=== PATIENT | male | born 1980 | race African-American/Black ===

== ENCOUNTER 2017-11-28 09:42 | Emergency (ER) | payer MEDICAID ==
[~2017-11-28] VITALS: Ht 185.4 cm; Wt 132.4 kg
[~2017-11-28 09:42] MED LIST: CALC500C3; IBU600T
[2017-11-28 09:48] VITALS: BP 150/102
[2017-11-28] MEDS ORDERED: KETOROLAC TROMETH 60MG/2ML VIAL IM ONE (10:45)
== END 2017-11-28 11:24 | disposition home or self-care (01) ==
LOC: ER 09:42
DX: M25.572 Pain in left ankle and joints of left foot (principal); F17.210 Nicotine dependence, cigarettes, uncomplicated; F12.10 Cannabis abuse, uncomplicated; Z79.1 Long term (current) use of non-steroidal anti-inflammatories (NSAID); Z79.899 Other long term (current) drug therapy
CPT/HCPCS: 73630; 96372; 99284; J1885

== ENCOUNTER 2018-10-10 09:12 | Emergency (ER) | payer MEDICAID ==
[~2018-10-10] VITALS: Ht 188 cm; Wt 127.0 kg
[2018-10-10 09:23] VITALS: BP 141/92
[2018-10-10] MEDS ORDERED: KETOROLAC TROMETH 60MG/2ML VIAL IM ONE (10:00)
== END 2018-10-10 10:14 | disposition home or self-care (01) ==
LOC: ER 09:14
DX: S83.92XA Sprain of unspecified site of left knee, initial encounter (principal); F17.210 Nicotine dependence, cigarettes, uncomplicated; F12.90 Cannabis use, unspecified, uncomplicated; Z79.899 Other long term (current) drug therapy; X50.0XXA Overexertion from strenuous movement or load, initial encounter; Y93.89 Activity, other specified; Y99.0 Civilian activity done for income or pay; Y92.89 Other specified places as the place of occurrence of the external cause
CPT/HCPCS: 73562; 96372; 99283; J1885

== ENCOUNTER 2025-04-08 14:38 | Emergency (ER) | payer MEDICAID ==
[~2025-04-08] VITALS: Ht 182.9 cm; Wt 130.0 kg
[~2025-04-08 14:38] MED LIST changes: +COLC1CAP PO; +INDO50CA82 PO
--- NOTE | 2025-04-08 15:50 | DVH ---
CLINICAL INDICATION: elbow pain TECHNIQUE: 3 radiographic views of the right elbow were obtained. Comparison: None FINDINGS/IMPRESSION: There is no evidence of acute fracture or dislocation. Small enthesophyte off the proximal ulna. The visualized joint space is well maintained. No joint effusion The alignment is anatomical. There is no radiopaque foreign body.
[2025-04-08] MEDS ORDERED: METH4PAK PO (17:39)
[2025-04-08] MEDS ORDERED: NAPR-746 PO (17:39)
--- NOTE | 2025-04-08 17:39 | ED.PDOC ---
Musculoskeletal HPI Comments 44-year-old male presents with a chief complaint of elbow pain to lateral epicondyle. 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 Patient mentions that this occurred 1 day ago. Patient mentions that the pain is made worse with flexion. Rates his pain moderate Has not tried anything over the counter for pain. No associated symptoms. Denies any numbness or tingling to his hand. Chief Complaint: Upper Extremity Time Seen by MD: 15:13 Primary Care Provider: TATI Ramirez Notes: Nurses Notes, Medications, Allergies Allergies: Coded Allergies: NO KNOWN ALLERGIES (Unverified , 11/16/12) Home Meds Active Scripts Methylprednisolone (Medrol Dosepak) 4 Mg Amos, 4 MG PO UD for 7 Days, #21 TAB 0 Refills UAD Prov:SANTI TALBOT MATH TEACHER 04/08/25 Naproxen (Naproxen) 500 Mg Tab, 500 MG PO BIDPC for 10 Days, #20 TAB 0 Refills Prov:SANTI TALBOT MATH TEACHER 04/08/25 Colchicine (Colchicine) 0.6 Mg Cap, 0.6 MG PO BID, #30 CAP Prov:MARTY SUTTON 09/24/22 Indomethacin (Indomethacin) 50 Mg Cap, 1 CAP PO TID, #30 CAP Prov:MARTY SUTTON 09/24/22 Reported Medications Calcium Carbonate (Tums) 500 Mg Chw 11/16/12 *Ibuprofen Micronized (*Motrin) 600 Mg Tb 11/16/12 Information Source: Patient Mode of Arrival: Ambulatory Location: Right Extremity Location: Elbow Timing: Days Prehospital treatment: None Severity: Moderate Able to Move Extremity: Yes Bear Weight: Limited Pain: Moderate Hand Dominance: Right Mechanism: No Trauma Circumstances: Work Related Onset of Symptoms: After Exercise Symptoms: Pain DVT Risk Factors: NONE Last Tetanus: UTD Associated signs and symptoms: Elbow pain Past Medical History PAST MEDICAL HISTORY: Gout Surgical History: Denies all surgeries Family History Family History: Reviewed,noncontributory to illness, No family hx of HTN Social History Smoker: Cigarettes Alcohol: Occasionally Drugs: Marijuana Lives In: Home Constitutional: denies: chills, diaphoresis, fatigue, fever, malaise, sweats, weakness, others EENTM: denies: blurred vision, double vision, ear bleeding, ear discharge, ear drainage, ear pain, ear ringing, eye pain, eye redness, hearing loss, mouth pain, mouth swelling, nasal discharge, nose bleeding, nose congestion, nose pain, photophobia, tearing, throat pain, throat swelling, voice changes, others Respiratory: denies: cough, hemoptysis, orthopnea, SOB at rest, shortness of breath, SOB with excertion, stridor, wheezing, others Cardiovascular: denies: chest pain, dizzy spells, diaphoresis, Dyspnea on exertion, edema, irregular heart beat, left arm pain, lightheadedness, palpitations, PND, syncope, others Gastrointestinal: denies: abdomen distended, abdominal pain, blood streaked bowels, constipated, diarrhea, dysphagia, difficulty swallowing, hematemesis, melena, nausea, poor appetite, poor fluid intake, rectal bleeding, rectal pain, vomiting, others Genitourinary: denies: burning, dysuria, flank pain, frequency, hematuria, incontinence, penile discharge, penile sore, pain, testicle pain, testicle swelling, urgency, others Neurological: denies: dizziness, fainting, headache, left sided numbness, left sided weakness, numbness, paresthesia, pre-existing deficit, right sided numbness, right sided weakness, seizure, speech problems, tingling, tremors, weakness, others Musculoskeletal: denies: back pain, gout, joint pain, joint swelling, muscle pain, muscle stiffness, neck pain, others Integumetry: denies: bruises, change in color, change in hair/nails, dryness, laceration, lesions, lumps, rash, wounds, others Allergic/Immunocompromised: denies: Difficulty Healing, Frequent Infections, Hives, Itching, others Hematologic/Lymphatic: denies: anemia, blood clots, easy bleeding, easy bruising, swollen glands, others Endocrine: denies: excessive hunger, excessive sweating, excessive thirst, excessive urination, flushing, intolerance to cold, intolerance to heat, unexplained weight gain, unexplained weight loss, others Psychiatric: denies: anxiety, bipolar disorder, depression, hopeless, panic disorder, schizophrenia, sleepless, suicidal, others All Other Systems: Reviewed and Negative ( PER HPI) Physical Exam General Appearance: No Apparent Distress, Normal HEENT: Normal ENT Inspection, Pharynx Normal, TMs Normal Neck: Full Range of Motion, Non-Tender, Normal, Normal Inspection Respiratory: Chest Non-Tender, Lungs Clear, No Accessory Muscle Use, No Respiratory Distress, Normal Breath Sounds Cardiovascular: No Edema, No JVD, No Murmur, No Gallop, Normal Peripheral Pulses, Regular Rate/Rhythm Breast Exam: Deferred Gastrointestinal: No Organomegaly, Non Tender, No Pulsatile Mass, Normal Bowel Sounds, Soft Genitalia: Deferred Pelvic: Deferred Rectal: Deferred Extremities: No calf tenderness, Normal capillary refill, Normal inspection, Normal range of motion, Non-tender, No pedal edema Musculoskeletal : Location: Right Extremity Location: Elbow (LOCALIZED TTP TO LATERAL EPICONDYLE, NO BRUISING OR SWELLING OR ERYTHEMA) Apperance: Normal Neurologic: Alert, coffee maker servicer II-XII nml as Tested, No Motor Deficits, Normal Affect, Normal Mood, No Sensory Deficits Cerebellar Function: Normal Reflexes: Normal Skin: Dry, Normal Color, Warm Lymphatic: No Adenopathy Was a procedure done? Was a procedure done?: No Differential Diagnosis EXT Differential Diagnosis: Sprain, Bursitis, Other X-Ray, Labs, Meds, VS Vital Signs Date Time Temp Pulse Resp B/P (MAP) Pulse Ox O2 Delivery O2 Flow Rate FiO2 04/08/25 18:01 98.0 92 16 132/88 (103) 97 98.0 04/08/25 18:01 92 18 96 Room Air 04/08/25 14:42 97.7 94 20 129/86 (100) 96 97.7 Current Medications Medications (Trade) Dose Ordered Sig/Momo Route Start Time Stop Time Status Last Admin Ketorolac Tromethamine (Toradol Injection) 60 mg ONCE ONCE IM 04/08/25 17:45 04/08/25 17:54 DC 04/08/25 17:57 X-Ray, Labs, Meds, VS Comment Patient presents with elbow pain. Differential diagnosis inlcuded but not limited to: compartment syndrome, elbow dislocation, monteggia fracture, radial head fracture, subluxed radial head, peripheral nerve injury, neurovascular impairment. All unlikely secondary to history and physical exam. The patient's history and presentation displays high suspicion for what appears to be tendinitis. There is low suspicion for multiple serious and potentially high morbidity etiologies which include supra condylar fracture, radial head fracture, dislocation, neurovascular compromise, referred pain from the wrist or shoulder, traumatic bursitis, to name a few. X-rays and diagnostic imaging was deferred as there was no acute trauma nor injury Discussed care with the patient. Emphasized the importance of follow-up with their primary care doctor as there are different grades of injury and they may need further management if symptoms continue for a longer period of time. Return precautions were discussed in detail regarding increased pain, numbness, tingling, discoloration of hand and fingers. Patient verbalized understanding and agreed with the plan of care. All questions were answered. Patient is stable for discharge at this time. External notes reviewed. Test results and diagnostic imaging interpreted. All diagnostic findings, discharge care, education and instructions provided Follow-up with PCP in 2 to 3 days Patient verbalized understanding and agreed to treatment plan Vital signs stable, afebrile, no acute distress noted Patient ambulatory with strong steady gait Advised to return precautions for any new or worsening symptoms, return to ER immediately for re-evaluation Patient is aware that the purpose of this visit was for an acute medical emergency requiring emergent stabilization. Chronic conditions, including malignancies have not been ruled out. Patient is instructed to follow up with PCP as directed and discharge instructions for continued care and workup. If unable to arrange follow-up, patient is to return to the emergency department for reassessment. Patient (parent or legal guardian if applicable) was given verbal and written discharge instructions and acknowledges understanding. Time of 1ST Reevaluation: 18:10 Reevaluation 1ST: Unchanged Patient Education/Counseling: Diagnosis, Treatment, Prognosis Family Education/Counseling: No Family Present Departure 1 Departure Time of Disposition: 17:37 Impression: Primary Impression: Tennis elbow syndrome Qualified Codes: M77.11 - Lateral epicondylitis, right elbow Disposition: 01 HOME / SELF CARE / HOMELESS Condition: Fair e-Prescriptions Methylprednisolone (Medrol Dosepak) 4 Mg Amos 4 MG PO UD for 7 Days, #21 TAB 0 Refills UAD Prov: SANTI TALBOT MATH TEACHER 04/08/25 Naproxen (Naproxen) 500 Mg Tab 500 MG PO BIDPC for 10 Days, #20 TAB 0 Refills Prov: SANTI TALBOT MATH TEACHER 04/08/25 Critical Care Note Critical Care Time?: No Stability Stability form required: No Heart Score Heart Score: Heart Score Response (Comments) Value History N/A 0 EKG N/A 0 Age N/A 0 Risk Factors N/A 0 Troponin N/A 0 Total 0 I personally scribed for SANTI TALBOT NP ([email or web address]) on 04/08/25 at 17:59. Electronically submitted by Salomón Kee ([email or web address]). SANTI TALBOT NP Apr 08, 2025 17:39
[2025-04-08] MEDS: KETOROLAC TROMETH 60MG/2ML VIAL IM ONE (17:57)
[2025-04-08 18:01] VITALS: BP 132/88; PULSE 92; RESP 18; TEMP 98; O2SAT 96
== END 2025-04-08 18:05 | disposition home or self-care (01) ==
LOC: ER 14:38
DX: M77.11 Lateral epicondylitis, right elbow (principal); F17.210 Nicotine dependence, cigarettes, uncomplicated; F12.90 Cannabis use, unspecified, uncomplicated; F10.90 Alcohol use, unspecified, uncomplicated; M10.9 Gout, unspecified; Z79.899 Other long term (current) drug therapy; Y90.9 Presence of alcohol in blood, level not specified
CPT/HCPCS: 73080; 96372; 99283; J1885